=== PATIENT | male | born 1995 | race Caucasian/White ===

== ENCOUNTER 2017-04-12 21:35 | Emergency (ER) | payer OTHER ==
--- NOTE | 2017-04-12 21:43 | EDPHY ---
H & P HPI/ROS: CHIEF COMPLAINT: Hypoglycemia HISTORY OF PRESENT ILLNESS: This is a 21-year-old [employer] is [employer] who was diagnosed with type 1 diabetes when he was 6 years old. He has had an insulin pump since grade school. He arrived by ambulance tonight. Friends found him this evening unresponsive, difficult to arouse, with shallow breathing and a rapid pulse. They ultimately called 911. His blood sugar was 25 in the field. He was given D50 with subsequent blood sugar 138. He is now awake and tells me that he does not think he is eaten anything since yesterday. His insulin pump has been on, it is now stopped. He has had previous episodes of hypoglycemia, none this severe. He was drinking yesterday," a few beers ". He also reported to the nurse that he had taken an oxycodone REVIEW OF SYSTEMS: A ten point review of systems was performed and is negative with the exception of the items mentioned in the HPI. Past medical history: Type 1 diabetes Past surgical history:. Negative. Family history: Diabetes. 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 He drinks alcohol on occasion. He does not use tobacco products. General Appearance: Alert. Vital signs reviewed. Blood pressure 147/77. Eyes: Pupils equal and round, no conjunctival injection, no discharge. Anicteric. ENT, Mouth: Mucous membranes are moist, no oropharyngeal erythema or edema. Neck: No lymphadenopathy, supple. Respiratory: Lungs are clear to auscultation; no wheezes, rales, or rhonchi. Cardiovascular: Regular rate and rhythm; no murmur, rub, or gallop. Gastrointestinal: Abdomen is soft and nontender, no masses or organomegaly, bowel sounds normal. Skin: Warm and dry, no rashes on exposed skin, normal color. Back: Nontender to palpation over the thoracolumbar spine. No CVAT. Extremities: No lower extremity edema, no calf tenderness or swelling. Neurological: Alert and oriented. Moving all four extremities easily and equally. Cranial nerves II through XII are examined and are intact (visual acuity not tested). Strength is 5 over 5 bilaterally with testing of all major motor groups. Sensation is intact to light touch over all 4 extremities. Psychiatric: Normal affect. Constitutional: Initial Vital Signs Temperature (C) 36.3 C 04/12/17 21:35 Heart Rate 85 04/12/17 21:35 Respiratory Rate 18 04/12/17 21:35 Blood Pressure 147/77 H 04/12/17 21:35 O2 Sat (%) 99 04/12/17 21:35 O2 Delivery Mode Room Air Allergies/Adverse Reactions: wheat Allergy (Verified 04/12/17 21:48) Home Medications: Medication Instructions Recorded Depression Med 04/12/17 Insulin Lispro [Humalog] 100 unit SQ 04/12/17 Medical Decision Making ED Course/Re-evaluation: 21-year-old with insulin-dependent diabetes who presents with hypoglycemia. He has been in bed all day, has not eaten anything, and did not turn off his insulin pump. Blood sugar was 25 in the field, 138 after he received D50. Blood sugar was rechecked at 10:50 p.m., approximately 1 hour after he arrived in the emergency department. He had eaten half of a sandwich and drank some diet agapito patti. Subsequent blood sugar was 266. He is turning his pump back on. I have encouraged him to continue eating. I met his parents at 11:25 PM. His mother is diabetic, with a pump, so the entire family is quite knowledgeable about this illness. They plan to stay in a motel room tonight and will keep him with them. I am comfortable with him being discharged from the emergency department. Differential Diagnosis: Altered mental status including but not limited to hypoglycemia, infectious process, electrolyte abnormality, head injury and intoxicants. - Data Points Laboratory Results: Laboratory Results 04/12/17 21:56 04/12/17 21:56 Departure - Departure Disposition: Home, Routine, Self-Care Clinical Impression: Hypoglycemia due to type 1 diabetes mellitus Condition: Good Instructions: Hypoglycemia in a Person with Diabetes (ED) Additional Instructions: I am giving you a referral to a local engine buildup mechanic, Dr. Martinez. I am also referring you to a local primary care physician, . I am providing information about the [facility] also, in case your eligible to get care there. If you have any further troubles with low blood sugar or high blood sugar please return to the emergency department. Referrals: Gertrude Martinez MD [[facility] [place] Primary Care Provider] - As per Instructions Dania Thomas MD [Medical Doctor] - As per Instructions [facility] [Outside] - As per Instructions
[2017-04-12 21:48] VITALS: TEMP 97.3
[2017-04-12 21:59] LABS: HEMATOCRIT 45.9 % (40.0-51.0); HEMOGLOBIN 15.9 g/dL (13.7-17.5); MEAN CELL HEMOGLOBIN 29.4 pg (27.9-34.1); MEAN CELL HEMOGLOBIN CONCENTR. 34.6 g/dL (32.4-36.7); RED BLOOD CELL COUNT 5.4 10^6/uL (4.40-6.38); RED CELL DISTRIBUTION WIDTH 11.9 % (11.5-15.2)
[2017-04-12 22:08] LABS: ANION GAP 15 mEq/L (8-16); CALCIUM 9.3 mg/dL (8.5-10.4); CARBON DIOXIDE 22 mEq/l (22-31); CHLORIDE 103 mEq/L (97-110); CREATININE 0.8 mg/dL (0.7-1.3); GLOMERULAR FILTRATION RATE > 60; GLUCOSE 195 mg/dL (70-100); POTASSIUM 4.3 mEq/L (3.5-5.2); SODIUM 140 mEq/L (134-144)
[2017-04-12 23:42] VITALS: BP 154/89; PULSE 83; RESP 16; O2SAT 97
== END 2017-04-12 23:42 | disposition home or self-care (01) ==
DX: E10.649 Type 1 diabetes mellitus with hypoglycemia without coma (principal)